=== PATIENT | female | born 1970 | race Caucasian/White ===

== ENCOUNTER 2019-07-17 14:21 | Observation (INO) ==
[2019-07-17] MEDS ORDERED: 0.9 % Sodium Chloride 1,000 ML IVC ONE (14:56)
[2019-07-17] MEDS ORDERED: Ondansetron 4 MG/2 ML VIAL ONE (15:52)
[2019-07-17] MEDS ORDERED: Lidocaine -MPF 2% 2 ML VIAL ONE (15:52)
[2019-07-17] MEDS ORDERED: Dexamethasone 4 MG/ML VIAL ONE ×2 (15:52→17:35)
[2019-07-17] MEDS ORDERED: Lidocaine HCL 4 ML Topical Solution (Laryng-O-Jet Kit Sterile Pak) TP ONE (15:53)
[2019-07-17] MEDS ORDERED: *HR* Rocuronium Bromide 50 MG/5 ML VIAL ONE (15:53)
[2019-07-17] MEDS ORDERED: *HR* Succinylcholine 200 MG/10 ML VIAL IVP ONE (15:53)
[2019-07-17] MEDS ORDERED: *HR* Propofol 200 MG/20 ML VIAL IVP ONE ×2 (15:54→17:40)
[2019-07-17] MEDS ORDERED: Ipratropium/Albuterol Neb 3 ML ONE (17:03)
[2019-07-17] MEDS ORDERED: *HR* Midazolam HCl 2 MG/2 ML VIAL ONE (17:23)
[2019-07-17] MEDS ORDERED: Albuterol 2.5 MG/3 ML NEBULIZER ONE (17:37)
[2019-07-17] MEDS ORDERED: *HR* Labetalol 20 MG/4 ML SYRINGE IVP ONE (17:41)
[2019-07-17] MEDS ORDERED: *HR* Magnesium Sulfate 1 GM/2 ML VIAL ONE (17:49)
[2019-07-17] MEDS ORDERED: Ondansetron 4 MG/2 ML VIAL IVP PRN (18:22)
[2019-07-17] MEDS ORDERED: *HR* Promethazine 25 MG/ML VIAL IVP PRN (18:22)
[2019-07-17] MEDS ORDERED: *HR* Labetalol 20 MG/4 ML SYRINGE IVP PRN (18:22)
[2019-07-17] MEDS ORDERED: 0.9 % Sodium Chloride 1,000 ML IVC SCH (19:53)
[2019-07-17] MEDS ORDERED: Naloxone 0.4 MG/ML INJ IVP PRN (20:02)
[2019-07-17] MEDS ORDERED: Albuterol 2.5 MG/3 ML NEBULIZER IH PRN (20:20)
[2019-07-17] MEDS: *HR* Heparin 5,000 UNIT/ML VIAL SQ SCH (21:03)
[2019-07-17] MEDS: ALPRAZolam 1 MG TABLET PO SCH (21:03)
[2019-07-17] MEDS ORDERED: Nicotine 21 MG PATCH.TD24 TD SCH (21:13)
[2019-07-17] MEDS ORDERED: Ipratropium/Albuterol Neb 3 ML IH PRN (22:00)
[2019-07-18] MEDS: Ipratropium/Albuterol Neb 3 ML IH SCH ×4 (00:32→11:43)
[2019-07-18 01:00] LABS: Basophils % 0.5 %; Eosinophils % 0.1 %; Hematocrit 47.4 % (35.3-44.9); Hemoglobin 15.5 g/dL (11.5-15.4); Immature Granulocytes % 0.3 % (0-4); Lymphocytes # 0.7 K/mcL (0.6-4.6); Lymphocytes % 9.9 %; Mean Corpuscular HGB Conc 32.7 g/dL (31.6-35.5); Mean Corpuscular Hemoglobin 32.2 pg (28.0-33.3); Mean Corpuscular Volume 98.5 fL (83.0-100.0); Mean Platelet Volume 10.2 fL (9.4-12.4); Monocytes % 0.4 %; Neutrophils # 6.5 K/mcL (1.6-8.9); Platelet Count 253 K/mcL (140-400); Red Blood Count 4.81 M/mcL (3.82-4.97); Segmented Neutrophils % 88.8 %; White Blood Count 7.3 K/mcL (4.3-11.1)
[2019-07-18 01:20] LABS: BUN/Creatinine Ratio 12 (6-26); Blood Urea Nitrogen 7 mg/dL (6-20); Calcium 9.5 mg/dL (8.6-10.3); Carbon Dioxide 27 mEq/L (23-29); Chloride 106 mEq/L (98-107); Glucose 160 mg/dL (70-105); Osmolality,Calculated 285 (280-300); Potassium 4.2 mEq/L (3.5-5.1); Sodium 137 mEq/L (136-145); eGFR For African Americans > 60 (> 60); eGFR For Non-African Americans > 60 (> 60)
[2019-07-18 02:33] LABS: Platelet Estimate Normal (Normal)
[2019-07-18] MEDS: *HR* Heparin 5,000 UNIT/ML VIAL SQ SCH ×2 (05:59→13:59)
[2019-07-18] MEDS: ALPRAZolam 1 MG TABLET PO SCH ×2 (08:47→14:10)
[2019-07-18] MEDS ORDERED: NON-FORMULARY MEDICATION 1 EACH EACH (Roflumilast [Daliresp] 500 MCG) PO SCH (09:00)
[2019-07-18] MEDS ORDERED: predniSONE 20 MG TABLET PO SCH (09:00)
[2019-07-18] MEDS ORDERED: Pantoprazole 40 MG VIAL IVP SCH (09:00)
[2019-07-18] MEDS ORDERED: Lurasidone 20 MG TABLET PO SCH (09:00)
[2019-07-18] MEDS ORDERED: Nicotine 21 MG PATCH.TD24 TD SCH (09:00)
[2019-07-18] MEDS ORDERED: Budesonide/Formoterol 80/4.5 1 PUFF INH IH SCH (10:00)
[2019-07-18 11:54] VITALS: BP 133/76
== END 2019-07-18 14:50 | disposition home or self-care (01) ==
LOC: 2NNU 14:21 → EMEROOARM 14:21 → 2NNU 16:05
PROVIDERS: ADMIT Surgery; ATTEND Surgery

== ENCOUNTER 2021-04-24 15:47 | Inpatient (IN) ==
[2021-04-24] MEDS ORDERED: *HR* Midazolam HCl 5 MG/5 ML VIAL IVP ONE ×2 (18:56→19:11)
[2021-04-24] MEDS ORDERED: Artificial Tears SOLN 15 ML BOTTLE BOTH EYES PRN (19:00)
[2021-04-24] MEDS: FentaNYL (PF) 1,000 MCG/100 ML IV.SOLN IVC SCH (19:18)
[2021-04-24] MEDS: Midazolam HCl 50 MG/100 ML IV.SOLN IVC SCH ×2 (19:18→21:40)
[2021-04-24] MEDS ORDERED: *HR* Dextrose 50 % in Water (Syg) 50 ML SYRINGE IVP PRN (19:52)
[2021-04-24] MEDS ORDERED: Dextrose Gel 15 GM/37.5 ML TUBE PO PRN ×2 (19:52)
[2021-04-24] MEDS ORDERED: D5% in Water 1,000 ML IVC PRN (19:52)
[2021-04-24] MEDS: Artificial Tears SOLN 15 ML BOTTLE BOTH EYES SCH (19:58)
[2021-04-24] MEDS: Pantoprazole 40 MG VIAL IVP SCH (19:58)
[2021-04-24] MEDS: Chlorhexidine Rinse 15 ML MOUTHWASH MM SCH (20:00)
[2021-04-24] MEDS ORDERED: Naloxone 0.4 MG/ML INJ IVP PRN (20:24)
[2021-04-24] MEDS: Dexmedetomidine HCl 400 MCG/100 ML MLS IVC SCH (20:26)
[2021-04-24] MEDS: 0.9 % Sodium Chloride 1,000 ML IVC SCH (20:42)
[2021-04-24 21:11] LABS: ABG Base Excess 10 mEq/L (-2 to 3); ABG HCO3 38 mEq/L (21-27); ABG Oxygen Saturation 94 % (95-98); ABG PCO2 63 mmHg (35-45); ABG PH 7.39 pH Units (7.32-7.45); ABG PO2 76 mmHg (85-104); ABG TCO2 40 mEq/L (20-26); Blood Gas Modality AF; Blood Gas VT 500 cc
[2021-04-24 21:16] LABS: Troponin I 0.62 ng/mL (< 0.04)
[2021-04-24] MEDS ORDERED: *HR* Heparin 5,000 UNIT/ML VIAL IVP PRN ×2 (22:04)
[2021-04-24] MEDS ORDERED: *HR* Heparin 5,000 UNIT/ML VIAL IVP ONE (22:04)
[2021-04-24] MEDS ORDERED: Heparin 25,000UNIT/250ML 1/2NS 25,000 UNIT/250 ML IV.SOLN IVC SCH (22:15)
[2021-04-24 23:06] LABS: Hematocrit 50.6 % (35.3-44.9); Hemoglobin 14.5 g/dL (11.5-15.4); Mean Corpuscular HGB Conc 28.7 g/dL (31.6-35.5); Mean Corpuscular Hemoglobin 30.4 pg (28.0-33.3); Mean Corpuscular Volume 106.1 fL (83.0-100.0); Mean Platelet Volume 10.3 fL (9.4-12.4); Platelet Count 196 K/mcL (140-400); Red Blood Count 4.77 M/mcL (3.82-4.97); Red Cell Distribution Width 13.5 % (11.5-14.5); White Blood Count 11.5 K/mcL (4.3-11.1)
[2021-04-24 23:14] LABS: Heparin anti-factor XA UFH 0.2 IU/mL (0.30-0.70); Prothrombin Time 11.5 Seconds (9.4-12.1)
[2021-04-24 23:16] LABS: Activated Partial Thrombo Time 29.6 Seconds (26.0-36.0)
[2021-04-24] MEDS: Norepinephrine 4 MG/254 ML IV.SOLN IVC SCH (23:20)
[2021-04-24] MEDS: Heparin 25,000UNIT/250ML 1/2NS 25,000 UNIT/250 ML IV.SOLN IVC SCH (23:40)
[2021-04-25] MEDS ORDERED: Perflutren Lipid Microsphere 1.3 ML in 0.9 % Sodium Chloride 8.7 ML IVP PRN (00:03)
[2021-04-25] MEDS: Artificial Tears SOLN 15 ML BOTTLE BOTH EYES SCH ×4 (00:03→13:16)
[2021-04-25] MEDS: Insulin LISPRO 300 UNITS/3 ML VIAL SUBQ SCH ×4 (00:40→17:35)
[2021-04-25] MEDS: Midazolam HCl 50 MG/100 ML IV.SOLN IVC SCH ×2 (02:10→06:13)
[2021-04-25] MEDS: Dexmedetomidine HCl 400 MCG/100 ML MLS IVC SCH ×5 (02:10→20:53)
[2021-04-25] MEDS: FentaNYL (PF) 1,000 MCG/100 ML IV.SOLN IVC SCH (02:11)
[2021-04-25] MEDS: Ipratropium/Albuterol Neb 3 ML IH SCH ×4 (04:35→21:29)
[2021-04-25 04:38] LABS: ABG Base Excess 9 mEq/L (-2 to 3); ABG HCO3 34 mEq/L (21-27); ABG Oxygen Saturation 94 % (95-98); ABG PCO2 48 mmHg (35-45); ABG PH 7.46 pH Units (7.32-7.45); ABG PO2 67 mmHg (85-104); ABG TCO2 36 mEq/L (20-26); Blood Gas VT 500 cc
[2021-04-25] MEDS: Doxycycline 100 MG in 0.9 % Sodium Chloride Mini Bag 100 ML IVPB SCH ×2 (05:21→17:04)
[2021-04-25 06:05] LABS: Basophils % 0.3 %; Eosinophils % 0.4 %; Hematocrit 47.8 % (35.3-44.9); Hemoglobin 13.9 g/dL (11.5-15.4); Immature Granulocytes % 0.6 % (0-4); Lymphocytes # 1.6 K/mcL (0.6-4.6); Lymphocytes % 15.4 %; Mean Corpuscular HGB Conc 29.1 g/dL (31.6-35.5); Mean Corpuscular Volume 103.2 fL (83.0-100.0); Mean Platelet Volume 10.2 fL (9.4-12.4); Monocytes # 0.8 K/mcL (0.0-1.3); Monocytes % 7.6 %; Neutrophils # 7.9 K/mcL (1.6-8.9); Platelet Count 174 K/mcL (140-400); Red Blood Count 4.63 M/mcL (3.82-4.97); Red Cell Distribution Width 13.8 % (11.5-14.5); Segmented Neutrophils % 75.7 %; White Blood Count 10.4 K/mcL (4.3-11.1)
[2021-04-25 06:13] LABS: INR 1.2; Prothrombin Time 13.3 Seconds (9.4-12.1)
[2021-04-25 06:24] LABS: Activated Partial Thrombo Time 59.2 Seconds (26.0-36.0)
[2021-04-25 06:34] LABS: Alanine Aminotransferase 13 Units/L (7-52); Albumin 3.2 g/dL (3.5-5.7); Albumin/Globulin Ratio 1.9 (1.1-2.2); Alkaline Phosphatase 76 Units/L (34-104); Aspartate Amino Transferase 20 Units/L (13-39); BUN/Creatinine Ratio 18 (6-26); Bilirubin,Direct 0.1 mg/dL (0.0-0.2); Bilirubin,Indirect 0.2 mg/dL (0.0-1.0); Bilirubin,Total 0.3 mg/dL (0.3-1.0); Blood Urea Nitrogen 17 mg/dL (6-20); Calcium 8.7 mg/dL (8.6-10.3); Carbon Dioxide 35 mEq/L (23-29); Chloride 106 mEq/L (98-107); Globulin 1.7 g/dL (2.4-3.5); Glucose 91 mg/dL (70-105); Osmolality,Calculated 303 (280-300); Potassium 3.8 mEq/L (3.5-5.1); Sodium 146 mEq/L (136-145); Total Protein 4.9 g/dL (6.4-8.9); eGFR For African Americans > 60 (> 60); eGFR For Non-African Americans > 60 (> 60)
[2021-04-25 08:45] LABS: Magnesium 1.5 mg/dL (1.6-2.6)
[2021-04-25 09:20] LABS: Adenovirus Not Detected (Not Detect); Bordetella Pertussis Not Detected (Not Detect); Chlamydophila pneumoniae Not Detected (Not Detect); Coronavirus 229E Not Detected (Not Detect); Coronavirus HKU1 Not Detected (Not Detect); Coronavirus NL63 Not Detected (Not Detect); Coronavirus OC43 Not Detected (Not Detect); Human Metapneumovirus Not Detected (Not Detect); Human Rhinovirus/Enterovirus Not Detected (Not Detect); Influenza A Subtype 2009 H1 Not Detected (Not Detect); Influenza B Not Detected (Not Detect); Mycoplasma pneumoniae Not Detected (Not Detect); Parainfluenza Virus 1 Not Detected (Not Detect); Parainfluenza Virus 2 Not Detected (Not Detect); Parainfluenza Virus 3 Not Detected (Not Detect); Parainfluenza Virus 4 Not Detected (Not Detect); Respiratory Syncytial Virus Not Detected (Not Detect); SARS-CoV-2 Not Detected (Not Detect)
[2021-04-25] MEDS: MethylPREDNISolone 40 MG/ML VIAL IVP SCH (09:26)
[2021-04-25] MEDS: Chlorhexidine Rinse 15 ML MOUTHWASH MM SCH (09:26)
[2021-04-25] MEDS: Pantoprazole 40 MG VIAL IVP SCH (09:27)
[2021-04-25] MEDS: Nicotine 21 MG PATCH.TD24 TD SCH (21:16)
[2021-04-26] MEDS: Insulin LISPRO 300 UNITS/3 ML VIAL SUBQ SCH ×4 (00:26→22:33)
[2021-04-26] MEDS: Heparin 25,000UNIT/250ML 1/2NS 25,000 UNIT/250 ML IV.SOLN IVC SCH ×3 (01:00→22:56)
[2021-04-26] MEDS: Dexmedetomidine HCl 400 MCG/100 ML MLS IVC SCH ×5 (01:04→22:54)
[2021-04-26] MEDS: Ipratropium/Albuterol Neb 3 ML IH SCH ×3 (04:17→15:54)
[2021-04-26 05:00] LABS: Basophils % 0.1 %; Hematocrit 45.9 % (35.3-44.9); Hemoglobin 13.8 g/dL (11.5-15.4); Immature Granulocytes % 0.3 % (0-4); Lymphocytes # 1.2 K/mcL (0.6-4.6); Lymphocytes % 9.8 %; Mean Corpuscular HGB Conc 30.1 g/dL (31.6-35.5); Mean Corpuscular Volume 99.8 fL (83.0-100.0); Mean Platelet Volume 10.9 fL (9.4-12.4); Monocytes # 0.8 K/mcL (0.0-1.3); Monocytes % 6.5 %; Neutrophils # 10.4 K/mcL (1.6-8.9); Platelet Count 168 K/mcL (140-400); Red Cell Distribution Width 13.5 % (11.5-14.5); Segmented Neutrophils % 83.3 %; White Blood Count 12.5 K/mcL (4.3-11.1)
[2021-04-26 05:12] LABS: VBG Ionized Calcium 1.31 mmol/L (1.15-1.35)
[2021-04-26 05:25] LABS: Alanine Aminotransferase 19 Units/L (7-52); Albumin 3.3 g/dL (3.5-5.7); Albumin/Globulin Ratio 1.5 (1.1-2.2); Alkaline Phosphatase 74 Units/L (34-104); Aspartate Amino Transferase 27 Units/L (13-39); BUN/Creatinine Ratio 33 (6-26); Bilirubin,Indirect 0.3 mg/dL (0.0-1.0); Bilirubin,Total 0.3 mg/dL (0.3-1.0); Blood Urea Nitrogen 15 mg/dL (6-20); Calcium 9.7 mg/dL (8.6-10.3); Carbon Dioxide 37 mEq/L (23-29); Chloride 101 mEq/L (98-107); Globulin 2.2 g/dL (2.4-3.5); Glucose 119 mg/dL (70-105); Magnesium 1.7 mg/dL (1.6-2.6); Osmolality,Calculated 294 (280-300); Potassium 4.4 mEq/L (3.5-5.1); Sodium 141 mEq/L (136-145); Total Protein 5.5 g/dL (6.4-8.9); eGFR For African Americans > 60 (> 60); eGFR For Non-African Americans > 60 (> 60)
[2021-04-26] MEDS: Doxycycline 100 MG in 0.9 % Sodium Chloride Mini Bag 100 ML IVPB SCH (05:57)
[2021-04-26] MEDS: Pantoprazole 40 MG VIAL IVP SCH (08:07)
[2021-04-26] MEDS: MethylPREDNISolone 40 MG/ML VIAL IVP SCH (08:07)
[2021-04-26] MEDS: Nicotine 21 MG PATCH.TD24 TD SCH (08:08)
[2021-04-26] MEDS ORDERED: *HR* Heparin 5,000 UNIT/ML VIAL IVP PRN (12:58)
[2021-04-26] MEDS ORDERED: D5% in Water 1,000 ML IVC PRN (12:58)
[2021-04-26] MEDS ORDERED: Dextrose Gel 15 GM/37.5 ML TUBE PO PRN ×2 (12:58)
[2021-04-26] MEDS ORDERED: *HR* Dextrose 50 % in Water (Syg) 50 ML SYRINGE IVP PRN (12:58)
[2021-04-26] MEDS ORDERED: Naloxone 0.4 MG/ML INJ IVP PRN (12:58)
[2021-04-26] MEDS ORDERED: Ipratropium/Albuterol Neb 3 ML ONE (13:24)
[2021-04-26] MEDS ORDERED: Doxycycline 100 MG CAPSULE PO SCH (21:00)
[2021-04-27] MEDS: Ipratropium/Albuterol Neb 3 ML IH SCH ×5 (00:02→20:33)
[2021-04-27 02:36] LABS: Basophils % 0.1 %; Eosinophils % 0.1 %; Hematocrit 42.4 % (35.3-44.9); Hemoglobin 13.3 g/dL (11.5-15.4); Immature Granulocytes % 0.2 % (0-4); Lymphocytes # 1.2 K/mcL (0.6-4.6); Lymphocytes % 13.1 %; Mean Corpuscular HGB Conc 31.4 g/dL (31.6-35.5); Mean Corpuscular Hemoglobin 30.8 pg (28.0-33.3); Mean Corpuscular Volume 98.1 fL (83.0-100.0); Mean Platelet Volume 10.1 fL (9.4-12.4); Monocytes # 0.7 K/mcL (0.0-1.3); Monocytes % 7.2 %; Neutrophils # 7.1 K/mcL (1.6-8.9); Platelet Count 186 K/mcL (140-400); Red Blood Count 4.32 M/mcL (3.82-4.97); Red Cell Distribution Width 13.5 % (11.5-14.5); Segmented Neutrophils % 79.3 %
[2021-04-27 02:56] LABS: Alanine Aminotransferase 19 Units/L (7-52); Albumin 3.1 g/dL (3.5-5.7); Albumin/Globulin Ratio 1.4 (1.1-2.2); Alkaline Phosphatase 64 Units/L (34-104); Aspartate Amino Transferase 23 Units/L (13-39); BUN/Creatinine Ratio 18 (6-26); Bilirubin,Indirect 0.3 mg/dL (0.0-1.0); Bilirubin,Total 0.3 mg/dL (0.3-1.0); Blood Urea Nitrogen 9 mg/dL (6-20); Calcium 9.4 mg/dL (8.6-10.3); Carbon Dioxide 36 mEq/L (23-29); Chloride 101 mEq/L (98-107); Globulin 2.2 g/dL (2.4-3.5); Glucose 138 mg/dL (70-105); Magnesium 1.7 mg/dL (1.6-2.6); Osmolality,Calculated 291 (280-300); Phosphorous 2.7 mg/dL (2.7-4.5); Potassium 3.7 mEq/L (3.5-5.1); Sodium 140 mEq/L (136-145); Total Protein 5.3 g/dL (6.4-8.9); eGFR For African Americans > 60 (> 60); eGFR For Non-African Americans > 60 (> 60)
[2021-04-27] MEDS: Dexmedetomidine HCl 400 MCG/100 ML MLS IVC SCH (05:00)
[2021-04-27] MEDS: Nicotine 21 MG PATCH.TD24 TD SCH (07:52)
[2021-04-27] MEDS: *HR* Heparin 5,000 UNIT/ML VIAL IVP PRN ×2 (07:53→15:59)
[2021-04-27] MEDS: Insulin LISPRO 300 UNITS/3 ML VIAL SUBQ SCH ×5 (07:54→23:46)
[2021-04-27] MEDS ORDERED: Magnesium Sulfate 1 GM/102 ML PIGGYBACK IVPB ONE (08:52)
[2021-04-27] MEDS ORDERED: Pantoprazole 40 MG VIAL IVP SCH (09:00)
[2021-04-27] MEDS ORDERED: MethylPREDNISolone 40 MG/ML VIAL IVP SCH (09:00)
[2021-04-27 09:17] LABS: Chol/HDL Ratio 1.9 (0-4.9); Cholesterol 186 mg/dL (< 200); HDL Cholesterol 99 mg/dL (40-59); LDL Cholesterol,Calculated 68 mg/dL (< 100); Triglycerides 93 mg/dL (< 150)
[2021-04-27] MEDS: Budesonide/Formoterol 160/4.5 1 PUFF INH IH SCH ×2 (10:37→20:33)
[2021-04-27] MEDS: Tiotropium 10 INH DOSE IH SCH (10:39)
[2021-04-27] MEDS: ALPRAZolam 1 MG TABLET PO PRN ×3 (11:38→21:40)
[2021-04-27] MEDS: Heparin 25,000UNIT/250ML 1/2NS 25,000 UNIT/250 ML IV.SOLN IVC SCH (18:52)
[2021-04-27] MEDS: 0.9 % Sodium Chloride 1,000 ML IVC SCH (23:47)
[2021-04-27] MEDS: Norepinephrine 4 MG/254 ML IV.SOLN IVC SCH (23:47)
[2021-04-28] MEDS: Ipratropium/Albuterol Neb 3 ML IH SCH ×4 (03:17→23:10)
[2021-04-28] MEDS: ALPRAZolam 1 MG TABLET PO PRN ×3 (05:14→16:11)
[2021-04-28 05:23] LABS: VBG Ionized Calcium 1.22 mmol/L (1.15-1.35)
[2021-04-28 05:40] LABS: Basophils % 0.1 %; Eosinophils # 0.1 K/mcL (0.0-0.6); Eosinophils % 0.6 %; Hematocrit 43.8 % (35.3-44.9); Hemoglobin 13.5 g/dL (11.5-15.4); Immature Granulocytes % 0.1 % (0-4); Lymphocytes # 1.8 K/mcL (0.6-4.6); Lymphocytes % 21.1 %; Mean Corpuscular HGB Conc 30.8 g/dL (31.6-35.5); Mean Corpuscular Hemoglobin 29.7 pg (28.0-33.3); Mean Corpuscular Volume 96.5 fL (83.0-100.0); Mean Platelet Volume 10.2 fL (9.4-12.4); Monocytes # 0.8 K/mcL (0.0-1.3); Monocytes % 9.6 %; Neutrophils # 5.9 K/mcL (1.6-8.9); Platelet Count 228 K/mcL (140-400); Red Blood Count 4.54 M/mcL (3.82-4.97); Red Cell Distribution Width 14.1 % (11.5-14.5); Segmented Neutrophils % 68.5 %; White Blood Count 8.7 K/mcL (4.3-11.1)
[2021-04-28 05:58] LABS: Alanine Aminotransferase 18 Units/L (7-52); Albumin 3.2 g/dL (3.5-5.7); Albumin/Globulin Ratio 1.7 (1.1-2.2); Alkaline Phosphatase 60 Units/L (34-104); Aspartate Amino Transferase 16 Units/L (13-39); BUN/Creatinine Ratio 13 (6-26); Bilirubin,Direct 0.1 mg/dL (0.0-0.2); Bilirubin,Indirect 0.2 mg/dL (0.0-1.0); Bilirubin,Total 0.3 mg/dL (0.3-1.0); Blood Urea Nitrogen 8 mg/dL (6-20); Calcium 9.2 mg/dL (8.6-10.3); Carbon Dioxide 37 mEq/L (23-29); Chloride 102 mEq/L (98-107); Globulin 1.9 g/dL (2.4-3.5); Glucose 91 mg/dL (70-105); Magnesium 1.9 mg/dL (1.6-2.6); Osmolality,Calculated 292 (280-300); Phosphorous 2.6 mg/dL (2.7-4.5); Potassium 3.3 mEq/L (3.5-5.1); Sodium 142 mEq/L (136-145); Total Protein 5.1 g/dL (6.4-8.9); eGFR For African Americans > 60 (> 60); eGFR For Non-African Americans > 60 (> 60)
[2021-04-28] MEDS: Tiotropium 10 INH DOSE IH SCH (07:19)
[2021-04-28] MEDS ORDERED: Potassium Chloride Elixir 20 MEQ/15 ML UDC PO ONE (07:19)
[2021-04-28] MEDS: predniSONE 20 MG TABLET PO SCH (07:35)
[2021-04-28] MEDS: Nicotine 21 MG PATCH.TD24 TD SCH (07:38)
[2021-04-28] MEDS: Insulin LISPRO 300 UNITS/3 ML VIAL SUBQ SCH ×3 (07:40→18:04)
[2021-04-28] MEDS ORDERED: NON-FORMULARY MEDICATION 1 EACH EACH (Fluticasone/Umeclidin/Vilanter [Trelegy Ellipta 100- PO SCH (09:00)
[2021-04-28] MEDS: *HR* Rivaroxaban 10 MG TABLET PO SCH (10:19)
[2021-04-28] MEDS: Budesonide/Formoterol 160/4.5 1 PUFF INH IH SCH ×2 (10:53→23:10)
[2021-04-28] MEDS ORDERED: FLU Vac QV 21-22 (6Month+)/PF 0.5 ML SYRINGE IM ONE (12:33)
[2021-04-28] MEDS: Melatonin 3 MG TABLET PO SCH (21:14)
[2021-04-29] MEDS: Ipratropium/Albuterol Neb 3 ML IH SCH ×4 (04:05→20:30)
[2021-04-29] MEDS: Tiotropium 10 INH DOSE IH SCH (08:34)
[2021-04-29] MEDS: Budesonide/Formoterol 160/4.5 1 PUFF INH IH SCH ×2 (08:36→20:30)
[2021-04-29] MEDS: predniSONE 20 MG TABLET PO SCH (09:21)
[2021-04-29] MEDS: Nicotine 21 MG PATCH.TD24 TD SCH (09:23)
[2021-04-29] MEDS: ALPRAZolam 1 MG TABLET PO PRN ×3 (09:27→23:33)
[2021-04-29] MEDS: *HR* Rivaroxaban 10 MG TABLET PO SCH (09:31)
[2021-04-29 16:32] LABS: Adenovirus Not Detected (Not Detect); Coronavirus 229E Not Detected (Not Detect); Coronavirus HKU1 Not Detected (Not Detect); Coronavirus NL63 Not Detected (Not Detect); Coronavirus OC43 Not Detected (Not Detect)
[2021-04-29 16:33] LABS: Bordetella Pertussis Not Detected (Not Detect); Chlamydophila pneumoniae Not Detected (Not Detect); Human Metapneumovirus Not Detected (Not Detect); Human Rhinovirus/Enterovirus Not Detected (Not Detect); Influenza A Subtype 2009 H1 Not Detected (Not Detect); Influenza B Not Detected (Not Detect); Mycoplasma pneumoniae Not Detected (Not Detect); Parainfluenza Virus 1 Not Detected (Not Detect); Parainfluenza Virus 2 Not Detected (Not Detect); Parainfluenza Virus 3 Not Detected (Not Detect); Parainfluenza Virus 4 Not Detected (Not Detect); Respiratory Syncytial Virus Not Detected (Not Detect); SARS-CoV-2 Not Detected (Not Detect)
[2021-04-29] MEDS: Melatonin 3 MG TABLET PO SCH (20:12)
[2021-04-30] MEDS: Ipratropium/Albuterol Neb 3 ML IH SCH ×4 (04:40→20:38)
[2021-04-30] MEDS: Nicotine 21 MG PATCH.TD24 TD SCH (07:28)
[2021-04-30] MEDS: *HR* Rivaroxaban 10 MG TABLET PO SCH (07:28)
[2021-04-30] MEDS: predniSONE 20 MG TABLET PO SCH ×2 (07:28→08:06)
[2021-04-30] MEDS: ALPRAZolam 1 MG TABLET PO PRN ×3 (07:33→20:52)
[2021-04-30] MEDS: Tiotropium 10 INH DOSE IH SCH (08:15)
[2021-04-30] MEDS: Budesonide/Formoterol 160/4.5 1 PUFF INH IH SCH ×2 (08:15→20:54)
[2021-04-30] MEDS: Melatonin 3 MG TABLET PO SCH (20:52)
[2021-05-01] MEDS: Ipratropium/Albuterol Neb 3 ML IH SCH ×4 (04:05→21:51)
[2021-05-01] MEDS: ALPRAZolam 1 MG TABLET PO PRN ×3 (06:00→20:43)
[2021-05-01] MEDS: *HR* Rivaroxaban 10 MG TABLET PO SCH (07:20)
[2021-05-01] MEDS: Nicotine 21 MG PATCH.TD24 TD SCH (07:20)
[2021-05-01] MEDS: predniSONE 20 MG TABLET PO SCH (07:20)
[2021-05-01] MEDS: Tiotropium 10 INH DOSE IH SCH (08:09)
[2021-05-01] MEDS: Budesonide/Formoterol 160/4.5 1 PUFF INH IH SCH ×2 (08:09→21:51)
[2021-05-01] MEDS: Melatonin 3 MG TABLET PO SCH (20:43)
[2021-05-02] MEDS: Ipratropium/Albuterol Neb 3 ML IH SCH ×4 (04:23→22:20)
[2021-05-02] MEDS: Nicotine 21 MG PATCH.TD24 TD SCH (07:15)
[2021-05-02] MEDS: predniSONE 20 MG TABLET PO SCH (07:15)
[2021-05-02] MEDS: *HR* Rivaroxaban 10 MG TABLET PO SCH (07:15)
[2021-05-02] MEDS: ALPRAZolam 1 MG TABLET PO PRN ×3 (07:15→21:45)
[2021-05-02] MEDS: Tiotropium 10 INH DOSE IH SCH (11:14)
[2021-05-02] MEDS: Budesonide/Formoterol 160/4.5 1 PUFF INH IH SCH ×2 (11:17→22:21)
[2021-05-02] MEDS: Melatonin 3 MG TABLET PO SCH (21:44)
[2021-05-03 04:19] VITALS: BP 123/77; PULSE 89; TEMP 98.3
[2021-05-03] MEDS: Ipratropium/Albuterol Neb 3 ML IH SCH ×3 (04:42→16:48)
[2021-05-03] MEDS: predniSONE 20 MG TABLET PO SCH (07:13)
[2021-05-03] MEDS: *HR* Rivaroxaban 10 MG TABLET PO SCH (07:13)
[2021-05-03] MEDS: ALPRAZolam 1 MG TABLET PO PRN ×2 (07:13→15:50)
[2021-05-03] MEDS: Nicotine 21 MG PATCH.TD24 TD SCH (07:14)
[2021-05-03] MEDS: Budesonide/Formoterol 160/4.5 1 PUFF INH IH SCH (11:38)
[2021-05-03] MEDS: Tiotropium 10 INH DOSE IH SCH (11:39)
[2021-05-03 11:40] VITALS: O2SAT 95
== END 2021-05-03 16:58 | disposition home or self-care (01) | DRG 917 ==
LOC: SUATTDRO 18:39 → ICNU 18:39 → 2NNU 04-26 12:11 → 3ANU 04-28 18:00
PROVIDERS: ADMIT Internal Medicine; ATTEND Internal Medicine

== ENCOUNTER 2021-08-03 17:12 | Inpatient (IN) ==
[2021-08-03] MEDS ORDERED: Artificial Tears SOLN 15 ML BOTTLE BOTH EYES PRN (21:18)
[2021-08-03] MEDS ORDERED: Naloxone 0.4 MG/ML INJ IVP PRN (21:26)
[2021-08-03] MEDS ORDERED: FentaNYL (PF) 1,000 MCG/100 ML IV.SOLN IVC SCH (21:30)
[2021-08-03] MEDS: Midazolam HCl 50 MG/100 ML IV.SOLN IVC SCH (22:00)
[2021-08-03] MEDS: *HR* Heparin 5,000 UNIT/ML VIAL SQ SCH (22:03)
[2021-08-03 22:39] LABS: Basophils % 0.2 %; Hemoglobin 13.6 g/dL (11.5-15.4); Immature Granulocytes % 0.5 % (0-4); Lymphocytes # 1.2 K/mcL (0.6-4.6); Lymphocytes % 8.9 %; Mean Corpuscular HGB Conc 30.9 g/dL (31.6-35.5); Mean Corpuscular Hemoglobin 32.5 pg (28.0-33.3); Mean Platelet Volume 9.9 fL (9.4-12.4); Monocytes # 0.7 K/mcL (0.0-1.3); Monocytes % 5.3 %; Neutrophils # 11.6 K/mcL (1.6-8.9); Nucleated Red Blood Cells 0.4 /100 WBC (0); Platelet Count 208 K/mcL (140-400); Red Blood Count 4.19 M/mcL (3.82-4.97); Red Cell Distribution Width 15.8 % (11.5-14.5); Segmented Neutrophils % 85.1 %; White Blood Count 13.6 K/mcL (4.3-11.1)
[2021-08-03 22:40] LABS: VBG Ionized Calcium 1.19 mmol/L (1.15-1.35)
[2021-08-03 22:50] LABS: ABG Base Excess 11 mEq/L (-2 to 3); ABG HCO3 38 mEq/L (21-27); ABG Oxygen Saturation 93 % (95-98); ABG PCO2 60 mmHg (35-45); ABG PH 7.41 pH Units (7.32-7.45); ABG PO2 67 mmHg (85-104); ABG TCO2 40 mEq/L (20-26); Blood Gas VT 420 cc
[2021-08-03 22:59] LABS: Alanine Aminotransferase 15 Units/L (7-52); Albumin 3.4 g/dL (3.5-5.7); Albumin/Globulin Ratio 1.7 (1.1-2.2); Alkaline Phosphatase 57 Units/L (34-104); Aspartate Amino Transferase 13 Units/L (13-39); BUN/Creatinine Ratio 15 (6-26); Bilirubin,Total 0.4 mg/dL (0.3-1.0); Blood Urea Nitrogen 10 mg/dL (6-20); Calcium 9.4 mg/dL (8.6-10.3); Carbon Dioxide 38 mEq/L (23-29); Chloride 98 mEq/L (98-107); Glucose 96 mg/dL (70-105); Magnesium 1.5 mg/dL (1.6-2.6); Osmolality,Calculated 285 (280-300); Phosphorous 1.6 mg/dL (2.7-4.5); Potassium 4.9 mEq/L (3.5-5.1); Sodium 138 mEq/L (136-145); Total Protein 5.4 g/dL (6.4-8.9); eGFR For African Americans > 60 (> 60); eGFR For Non-African Americans > 60 (> 60)
[2021-08-03] MEDS: Albuterol 2.5 MG/3 ML NEBULIZER IH PRN (23:38)
[2021-08-04] MEDS: Artificial Tears SOLN 15 ML BOTTLE BOTH EYES SCH ×5 (00:06→16:13)
[2021-08-04] MEDS: Dexmedetomidine HCl 400 MCG/100 ML MLS IVC SCH ×2 (00:06→13:15)
[2021-08-04 03:35] LABS: Basophils % 0.2 %; Eosinophils % 0.2 %; Hematocrit 42.8 % (35.3-44.9); Hemoglobin 12.8 g/dL (11.5-15.4); Immature Granulocytes % 0.5 % (0-4); Lymphocytes # 1.8 K/mcL (0.6-4.6); Lymphocytes % 14.5 %; Mean Corpuscular HGB Conc 29.9 g/dL (31.6-35.5); Mean Corpuscular Hemoglobin 31.8 pg (28.0-33.3); Mean Corpuscular Volume 106.2 fL (83.0-100.0); Mean Platelet Volume 10.2 fL (9.4-12.4); Monocytes # 0.8 K/mcL (0.0-1.3); Monocytes % 6.7 %; Neutrophils # 9.4 K/mcL (1.6-8.9); Nucleated Red Blood Cells 0.2 /100 WBC (0); Platelet Count 208 K/mcL (140-400); Red Blood Count 4.03 M/mcL (3.82-4.97); Red Cell Distribution Width 16.1 % (11.5-14.5); Segmented Neutrophils % 77.9 %
[2021-08-04 03:50] LABS: VBG Ionized Calcium 1.19 mmol/L (1.15-1.35)
[2021-08-04 03:58] LABS: BUN/Creatinine Ratio 17 (6-26); Blood Urea Nitrogen 11 mg/dL (6-20); Calcium 9.1 mg/dL (8.6-10.3); Carbon Dioxide 40 mEq/L (23-29); Chloride 100 mEq/L (98-107); Glucose 94 mg/dL (70-105); Magnesium 2.1 mg/dL (1.6-2.6); Osmolality,Calculated 283 (280-300); Phosphorous 3.4 mg/dL (2.7-4.5); Potassium 4.1 mEq/L (3.5-5.1); Sodium 137 mEq/L (136-145); eGFR For African Americans > 60 (> 60); eGFR For Non-African Americans > 60 (> 60)
[2021-08-04] MEDS: Albuterol 2.5 MG/3 ML NEBULIZER IH PRN (03:58)
[2021-08-04 04:10] LABS: ABG Base Excess 11 mEq/L (-2 to 3); ABG HCO3 39 mEq/L (21-27); ABG Oxygen Saturation 94 % (95-98); ABG PCO2 63 mmHg (35-45); ABG PO2 73 mmHg (85-104); ABG TCO2 41 mEq/L (20-26); Blood Gas VT 420 cc
[2021-08-04] MEDS: *HR* Heparin 5,000 UNIT/ML VIAL SQ SCH ×2 (05:03→14:30)
[2021-08-04] MEDS ORDERED: Pantoprazole 40 MG VIAL IVP SCH (09:00)
[2021-08-04] MEDS ORDERED: Chlorhexidine Rinse 15 ML MOUTHWASH MM SCH (09:00)
[2021-08-04] MEDS: Midazolam HCl 50 MG/100 ML IV.SOLN IVC SCH (10:18)
[2021-08-04] MEDS: Ipratropium/Albuterol Neb 3 ML IH SCH ×2 (12:07→16:22)
[2021-08-04] MEDS ORDERED: ALPRAZolam 1 MG TABLET PO PRN ×2 (13:31→18:32)
[2021-08-04] MEDS ORDERED: Albuterol 2.5 MG/3 ML NEBULIZER IH PRN ×4 (13:45→22:59)
[2021-08-04] MEDS ORDERED: Naloxone 0.4 MG/ML INJ IVP PRN ×2 (18:32→22:59)
[2021-08-04] MEDS ORDERED: predniSONE 10 MG TABLET PO SCH (18:32)
[2021-08-04] MEDS ORDERED: Dexmedetomidine HCl 400 MCG/100 ML MLS IVC SCH (18:32)
[2021-08-04] MEDS ORDERED: Ipratropium/Albuterol Neb 3 ML IH SCH (20:00)
[2021-08-04] MEDS ORDERED: Lurasidone 20 MG TABLET PO SCH ×2 (21:00)
[2021-08-04] MEDS ORDERED: *HR* Heparin 5,000 UNIT/ML VIAL SQ SCH (22:00)
[2021-08-04] MEDS ORDERED: Budesonide/Formoterol 160/4.5 1 PUFF INH IH SCH (22:00)
[2021-08-05] MEDS: Ipratropium/Albuterol Neb 3 ML IH SCH ×7 (00:07→23:44)
[2021-08-05] MEDS ORDERED: Loratadine 10 MG TABLET PO SCH ×2 (09:00)
[2021-08-05] MEDS ORDERED: Roflumilast [Daliresp] 500 MCG Tablet PO SCH ×2 (09:00)
[2021-08-05] MEDS ORDERED: *HR* Rivaroxaban 10 MG TABLET PO SCH ×2 (09:00)
[2021-08-05] MEDS: ALPRAZolam 1 MG TABLET PO PRN ×3 (09:15→19:58)
[2021-08-05] MEDS: Loratadine 10 MG TABLET PO SCH (09:16)
[2021-08-05] MEDS: *HR* Rivaroxaban 10 MG TABLET PO SCH (09:16)
[2021-08-05] MEDS: predniSONE 10 MG TABLET PO SCH (09:17)
[2021-08-05] MEDS: Roflumilast [Daliresp] 500 MCG PO SCH (09:18)
[2021-08-05] MEDS ORDERED: Budesonide/Formoterol 160/4.5 1 PUFF INH IH SCH (10:00)
[2021-08-05] MEDS: Nicotine 21 MG PATCH.TD24 TD SCH (17:22)
[2021-08-05] MEDS ORDERED: Acetaminophen 325 MG TABLET PO ONE (20:04)
[2021-08-05] MEDS ORDERED: Lurasidone 20 MG TABLET PO SCH (21:00)
[2021-08-06 04:00] LABS: BUN/Creatinine Ratio 16 (6-26); Blood Urea Nitrogen 9 mg/dL (6-20); Calcium 8.9 mg/dL (8.6-10.3); Carbon Dioxide 38 mEq/L (23-29); Chloride 99 mEq/L (98-107); Glucose 107 mg/dL (70-105); Osmolality,Calculated 289 (280-300); Potassium 3.3 mEq/L (3.5-5.1); Sodium 140 mEq/L (136-145); eGFR For African Americans > 60 (> 60); eGFR For Non-African Americans > 60 (> 60)
[2021-08-06] MEDS: Ipratropium/Albuterol Neb 3 ML IH SCH ×3 (04:04→11:41)
[2021-08-06 04:05] LABS: Hematocrit 38.5 % (35.3-44.9); Hemoglobin 12.2 g/dL (11.5-15.4); Mean Corpuscular HGB Conc 31.7 g/dL (31.6-35.5); Mean Corpuscular Hemoglobin 32.8 pg (28.0-33.3); Mean Corpuscular Volume 103.5 fL (83.0-100.0); Platelet Count 191 K/mcL (140-400); Red Blood Count 3.72 M/mcL (3.82-4.97); Red Cell Distribution Width 16.1 % (11.5-14.5); White Blood Count 8.2 K/mcL (4.3-11.1)
[2021-08-06 07:53] VITALS: O2SAT 93
[2021-08-06] MEDS: predniSONE 10 MG TABLET PO SCH (08:54)
[2021-08-06] MEDS: Nicotine 21 MG PATCH.TD24 TD SCH (08:55)
[2021-08-06] MEDS: *HR* Rivaroxaban 10 MG TABLET PO SCH (08:55)
[2021-08-06] MEDS: Loratadine 10 MG TABLET PO SCH (08:55)
[2021-08-06] MEDS: Roflumilast [Daliresp] 500 MCG PO SCH (08:56)
[2021-08-06] MEDS: ALPRAZolam 1 MG TABLET PO PRN (08:59)
[2021-08-06 10:27] VITALS: BP 107/69; PULSE 96; TEMP 98.2
[2021-08-06] MEDS ORDERED: Acetaminophen 325 MG TABLET PO PRN (12:12)
== END 2021-08-06 14:27 | disposition home or self-care (01) | DRG 208 ==
LOC: ICNU 21:05 → 3ANU 08-04 20:29
PROVIDERS: ADMIT Family Medicine; ATTEND Family Medicine